=== PATIENT | male | born 1975 | race Caucasian/White ===

== ENCOUNTER 2021-01-22 04:41 | Emergency (ER) | payer SELFPAY ==
[~2021-01-22 04:41] MED LIST: NO
[2021-01-22 05:23] LABS: HEMATOCRIT 47.8 % (39.0-50.0); HEMOGLOBIN 15.6 g/dl (14.0-18.0); IMMATURE GRANULOCYTES 0.2 % (0.0-5.0); MEAN CORPUSCULAR HGB 29.4 pG CALC (26.0-32.0); MEAN CORPUSCULAR HGB CONC 32.6 g/dL CAL (32.0-36.0); NEUT# 4.37 thou/uL (1.82-7.42); RED BLOOD COUNT 5.31 mill/uL (4.70-6.10); RED CELL DISTRI WIDTH 13.2 % (11.5-15.5)
[2021-01-22 05:42] LABS: ALBUMIN 4.2 g/dL (3.2-5.0); ALKALINE PHOSPHATASE 68 u/l (38-126); AMYLASE 73 u/l (30-110); ANION GAP 11 (6-22 (CALC)); BILIRUBIN, TOTAL 0.8 mg/dL (0.0-1.4); BUN 17 mg/dL (9-20); BUN/CREATININE RATIO 14 (12-20 (CALC)); CARBON DIOXIDE 29 mmol/l (22-30); CHLORIDE 102 mmol/l (95-108); CREATININE 1.2 mg/dL (0.7-1.3); GFR > 60 ML/MIN (>=60 (CALC)); GFR FOR AFR.AMER. > 60 ML/MIN (>=60 (CALC)); LIPASE 111 u/l (23-300); POTASSIUM 4.3 mmol/l (3.5-5.1); SGOT/AST 33 u/l (17-59); SODIUM 138 mmol/l (137-146); TOTAL PROTEIN 7.5 g/dL (6.3-8.2)
[2021-01-22] MEDS ORDERED: TORADOL PO (06:29)
[2021-01-22] MEDS ORDERED: LORTAB 5/3255 MG PO (06:29)
[2021-01-22] MEDS ORDERED: TAMSULOSIN0.4 MG PO (06:29)
[2021-01-22 06:30] VITALS: BP 166/100
== END 2021-01-22 07:04 | disposition home or self-care (01) | DRG 694 ==
LOC: ED 04:41
PROVIDERS: Family Medicine
DX: N13.2 Hydronephrosis with renal and ureteral calculous obstruction (principal); F17.200 Nicotine dependence, unspecified, uncomplicated

== ENCOUNTER 2021-05-25 18:38 | Inpatient (IN) | payer OTHER ==
[~2021-05-25] VITALS: Ht 175.3 cm; Wt 177.0 kg
[~2021-05-25 18:38] MED LIST changes: +LORTAB 5/3255 MG PO; +TAMSULOSIN0.4 MG PO; +TORADOL PO
--- NOTE | 2021-05-25 18:45 | NUR ---
PT TO ROOM FOR TRIAGE VIA WHEELCHAIR
--- NOTE | 2021-05-25 19:30 | NUR ---
Reassessment of patient completed. No distress noted. REPORT FROM DAVID BOBO
[2021-05-25 20:09] LABS: HEMATOCRIT 45.8 % (39.0-50.0); IMMATURE GRANULOCYTES 0.2 % (0.0-5.0); MEAN CELL VOLUME 91.6 fL CALC (80.0-100.0); MEAN CORPUSCULAR HGB CONC 32.8 g/dL CAL (32.0-36.0); NEUT# 4.01 thou/uL (1.82-7.42); RED CELL DISTRI WIDTH 12.9 % (11.5-15.5)
[2021-05-25 20:27] LABS: ALKALINE PHOSPHATASE 64 u/l (38-126); ANION GAP 11 (6-22 (CALC)); BILIRUBIN, TOTAL 0.6 mg/dL (0.0-1.4); BUN 16 mg/dL (9-20); BUN/CREATININE RATIO 11 (12-20 (CALC)); CARBON DIOXIDE 29 mmol/l (22-30); CHLORIDE 99 mmol/l (95-108); CREATININE 1.5 mg/dL (0.7-1.3); GFR 50 ML/MIN (>=60 (CALC)); GFR FOR AFR.AMER. > 60 ML/MIN (>=60 (CALC)); LIPASE 118 u/l (23-300); POTASSIUM 3.6 mmol/l (3.5-5.1); SGOT/AST 52 u/l (17-59); SODIUM 136 mmol/l (137-146); TOTAL PROTEIN 7.5 g/dL (6.3-8.2)
--- NOTE | 2021-05-25 20:30 | NUR ---
Reassessment of patient completed. No distress noted.
[2021-05-25 20:42] LABS: D-DIMER 1.13 mg/L (0.19-0.60)
[2021-05-25 20:46] LABS: ACT PARTIAL THROMBO TIME 26.8 SECONDS (20.0-32.5); PROTHROMBIN TIME 10.6 SECONDS (9.0-12.5)
--- NOTE | 2021-05-25 21:45 | NUR ---
Reassessment of patient completed. No distress noted.
[2021-05-25 21:59] LABS: URINE BILIRUBIN - DIPSTICK NEGATIVE (NEGATIVE); URINE BLOOD DIPSTICK NEGATIVE (NEGATIVE); URINE COLOR YELLOW; URINE GLUCOSE - DIPSTICK NEGATIVE (NEGATIVE); URINE KETONE NEGATIVE (NEGATIVE); URINE LEUK ESTERASE NEGATIVE (NEGATIVE); URINE PROTEIN - DIPSTICK 30 mg/dL (NEG-TRACE); URINE SPECIFIC GRAVITY 1.025
[2021-05-25 22:01] LABS: URINE NITRITE - DIPSTICK NEGATIVE (Negative)
[2021-05-25 22:09] LABS: URINE RBC 0-2 RBC/hpf (0-5); URINE SQUAMOUS EPITHELIAL CELL FEW EPI/hpf (0-FEW)
--- NOTE | 2021-05-25 22:30 | NUR ---
Reassessment of patient completed. No distress noted.
--- NOTE | 2021-05-25 23:23 | NUR ---
Reassessment of patient completed. No distress noted.
--- NOTE | 2021-05-26 00:35 | NUR ---
Reassessment of patient completed. No distress noted.
--- NOTE | 2021-05-26 01:30 | NUR ---
Reassessment of patient completed. No distress noted.
[2021-05-26 05:55] LABS: ALBUMIN 3.8 g/dL (3.2-5.0); ALKALINE PHOSPHATASE 58 u/l (38-126); BILIRUBIN, TOTAL 0.5 mg/dL (0.0-1.4); BUN 15 mg/dL (9-20); BUN/CREATININE RATIO 14 (12-20 (CALC)); C-REACTIVE PROTEIN 5.1 mg/dL (0-0.9); CARBON DIOXIDE 24 mmol/l (22-30); CHLORIDE 100 mmol/l (95-108); CREATININE 1.1 mg/dL (0.7-1.3); GFR > 60 ML/MIN (>=60 (CALC)); GFR FOR AFR.AMER. > 60 ML/MIN (>=60 (CALC)); SGOT/AST 55 u/l (17-59); SODIUM 135 mmol/l (137-146); TOTAL PROTEIN 7.2 g/dL (6.3-8.2)
[2021-05-26 05:59] LABS: HEMATOCRIT 44.3 % (39.0-50.0); HEMOGLOBIN 14.8 g/dl (14.0-18.0); IMMATURE GRANULOCYTES 0.2 % (0.0-5.0); MEAN CELL VOLUME 91.9 fL CALC (80.0-100.0); MEAN CORPUSCULAR HGB 30.7 pG CALC (26.0-32.0); MEAN CORPUSCULAR HGB CONC 33.4 g/dL CAL (32.0-36.0); NEUT# 4.46 thou/uL (1.82-7.42); RED BLOOD COUNT 4.82 mill/uL (4.70-6.10); RED CELL DISTRI WIDTH 12.9 % (11.5-15.5)
[2021-05-26 06:10] LABS: ANION GAP 16 (6-22 (CALC)); POTASSIUM 4.8 mmol/l (3.5-5.1)
--- NOTE | 2021-05-26 16:46 | NUR ---
report rec from Sadaf BOBO
--- NOTE | 2021-05-26 17:00 | NUR ---
REPORT TO FLOOR
--- NOTE | 2021-05-26 17:20 | NUR ---
PATIENT TO FLOOR IN WHEEL CHAIR
--- NOTE | 2021-05-26 17:35 | NUR ---
PT ARRIVED VIA WC ACCOMPANIED BY ED RN. A&O X4. NO DISTRESS NOTED. PT AMBULATING TO BATHROOM WITH STEADY GAIT OBSERVED. O2 VIA ROOM AIR 87%, O2 VIA NC @4L APPLIED, O2 SUSTAINING 92-93%. CLEAR DIMINISHED BREATH SOUNDS UPON AUSCULTATION. MATERIALS HANDLER COUGH NOTED; PT REPORTS OCCASIONAL PRODUCTIVE COUGHING. MARKETING OPERATIONS SPECIALIST IN PLACE. #20G LAC HEALTHY AND PATENT. IS DEVICE TO BE GIVEN. ACTIVE BOWEL SOUNDS X4 QUADRANTS. BM REPORTED TODAY. TRACE EDEMA NOTED TO BILATERAL ANKLES. PT DENIES REC THE COVID VACCINE. REPORTS EXERTIONAL SOB AND DECREASED APPETITE. PT ORIENTED TO ROOM. ASSESSMENT COMPLETED. DISCUSSED POC. CALL LIGHT WITHIN REACH.
[2021-05-26 19:00] VITALS: BP 117/61
--- NOTE | 2021-05-26 20:35 | NUR ---
PATIENT ALERT AND ORIENTED. ABLE TO MAKE NEEDS KNOWN. SITTING IN RECLINER WITH NO COMPLAINTS VOICED. ASSESSMENT COMPLETE. NO SIGNS OF PAIN OR DISTRESS NOTED. IV SITE TO LEFT AC PATENT. BELONGINGS AND CALL LIGHT WITHIN REACH.
[2021-05-27] VITALS: BP 126/76
[2021-05-27 04:00] VITALS: BP 107/55
--- NOTE | 2021-05-27 04:15 | NUR ---
RESTING IN BED QUIETLY. NO COMPLAINTS VOICED AT THE TIME. CALL LIGHT REMAINS IN REACH.
[2021-05-27 05:45] LABS: HEMATOCRIT 45.2 % (39.0-50.0); HEMOGLOBIN 14.8 g/dl (14.0-18.0); IMMATURE GRANULOCYTES 0.2 % (0.0-5.0); MEAN CORPUSCULAR HGB 30.5 pG CALC (26.0-32.0); MEAN CORPUSCULAR HGB CONC 32.7 g/dL CAL (32.0-36.0); NEUT# 3.4 thou/uL (1.82-7.42); RED BLOOD COUNT 4.86 mill/uL (4.70-6.10); RED CELL DISTRI WIDTH 12.8 % (11.5-15.5)
--- NOTE | 2021-05-27 05:59 | NUR ---
RECEIVED PRN COUGH MEDICATION PER REQUEST. PATIENT OBSERVED SPITTING IN A CUP. PROVIDED MORE FRESH ICE WATER. NO COMPLAINTS VOICED AT THIS TIME.
[2021-05-27 06:00] LABS: ALBUMIN 3.4 g/dL (3.2-5.0); ALKALINE PHOSPHATASE 58 u/l (38-126); ANION GAP 14 (6-22 (CALC)); BILIRUBIN, TOTAL 0.4 mg/dL (0.0-1.4); BUN 16 mg/dL (9-20); BUN/CREATININE RATIO 16 (12-20 (CALC)); CARBON DIOXIDE 28 mmol/l (22-30); CHLORIDE 99 mmol/l (95-108); GFR > 60 ML/MIN (>=60 (CALC)); GFR FOR AFR.AMER. > 60 ML/MIN (>=60 (CALC)); POTASSIUM 4.7 mmol/l (3.5-5.1); SGOT/AST 53 u/l (17-59); SODIUM 135 mmol/l (137-146); TOTAL PROTEIN 6.6 g/dL (6.3-8.2)
--- NOTE | 2021-05-27 07:25 | NUR ---
PT SLEEPING WHILE ENTERING ROOM. ALERT AND ORIENTED. COVID+ ON 4L NC. VITALS AND ASSESSMENT COMPLETED. S1 AND S2 HEARD UPON ASCULTATION. PT HAS EXERTIONAL SOB. BOWELS ACTIVE IN ALL 4 QUADRANTS. SKIN WARM AND DRY. PEDAL PULSES STRONG BILATERALLY. IV PATENT AND HEALTHY. NO PAIN INDICATED. CALL LIGHT WITHIN REACH.
[2021-05-27 07:26] VITALS: BP 107/50
[2021-05-27 11:00] VITALS: BP 103/62
--- NOTE | 2021-05-27 12:02 | NUR ---
PT IN BED. NO DISTRESS NOTED. CALL LIGHT WITHIN REACH.
--- NOTE | 2021-05-27 15:05 | NUR ---
PT SITTING IN THE CHAIR. NO DISTRESS NOTED. CALL LIGHT WITHIN REACH.
[2021-05-27 16:30] VITALS: BP 127/69
[2021-05-27 19:00] VITALS: BP 116/79
--- NOTE | 2021-05-27 20:13 | NUR ---
PATIENT AWAKE ALERT SITTING UP IN CHAIR. ALERT AND ORIENTED X3. DENIES PAIN. ROCEPHIN INFUSING AT THIS TIME. HR REG. ON TELEMETRY. O2 3.5 L N/C IN PLACE. NO ACUTE DISTRESS. EXPRESSED DESIRE TO TAKE SHOWER. VAD PATENT WITH DRESSING CDI. ASSESSMENT COMPLETED AND CHARTED. CALL LIGHT WITHIN REACH.
--- NOTE | 2021-05-27 23:00 | NUR ---
PATIENT UP TO SHOWER WITHOUT DIFFICULTY.
--- NOTE | 2021-05-27 23:30 | NUR ---
AT 2130 PATIENT HAS AN 11 BEAT RUN OF VTACH. PATIENT ASYMPTOMATIC. SITTING UP IN CHAIR. ZITHROMAX INFUSING. CALL LIGHT WITHIN REACH.
[2021-05-28] VITALS: BP 105/65
--- NOTE | 2021-05-28 | NUR ---
PRN NICHOLESIN AC GIVEN PER PATIENT REQUEST.
[2021-05-28 04:00] VITALS: BP 107/66
--- NOTE | 2021-05-28 04:08 | NUR ---
NO CHANGES OBSERVED.
[2021-05-28 05:36] LABS: HEMATOCRIT 43.6 % (39.0-50.0); HEMOGLOBIN 14.2 g/dl (14.0-18.0); MEAN CELL VOLUME 92.4 fL CALC (80.0-100.0); MEAN CORPUSCULAR HGB 30.1 pG CALC (26.0-32.0); MEAN CORPUSCULAR HGB CONC 32.6 g/dL CAL (32.0-36.0); NEUT# 2.45 thou/uL (1.82-7.42); RED BLOOD COUNT 4.72 mill/uL (4.70-6.10); RED CELL DISTRI WIDTH 12.9 % (11.5-15.5)
[2021-05-28 05:56] LABS: ALBUMIN 3.4 g/dL (3.2-5.0); ALKALINE PHOSPHATASE 58 u/l (38-126); ANION GAP 12 (6-22 (CALC)); BILIRUBIN, TOTAL 0.4 mg/dL (0.0-1.4); BUN 18 mg/dL (9-20); BUN/CREATININE RATIO 20 (12-20 (CALC)); C-REACTIVE PROTEIN 4.7 mg/dL (0-0.9); CARBON DIOXIDE 27 mmol/l (22-30); CHLORIDE 99 mmol/l (95-108); CREATININE 0.9 mg/dL (0.7-1.3); GFR > 60 ML/MIN (>=60 (CALC)); GFR FOR AFR.AMER. > 60 ML/MIN (>=60 (CALC)); POTASSIUM 4.6 mmol/l (3.5-5.1); SGOT/AST 66 u/l (17-59); SODIUM 134 mmol/l (137-146); TOTAL PROTEIN 6.4 g/dL (6.3-8.2)
[2021-05-28 07:45] VITALS: BP 131/72
--- NOTE | 2021-05-28 07:45 | NUR ---
PT IN BED WHEN ENTERED ROOM. PT IS ALERT AND ORIENTED. COVID+ ON 3.5L OF 02.NC. PT IS STATING BETWEEN 91-92%. VITALS AND ASSESSMENT COMPLETED. PRODUCTIVE COUGH WITH CLEAR FLUID GETTING EXPELLED. S1 AND S2 HEARD UPON ASCULTATION. BOWELS ACTIVE IN ALL 4 QUADS. SKIN WARM AND DRY. PEDAL PULSES BILATERALLY STRONG. IV PATENT AND HEALTHY. NO PAIN INDICATED. CALL LIGHT WITHIN REACH.
--- NOTE | 2021-05-28 10:42 | NUR ---
PT IN BED. NO WANTS AT THIS TIME. NO PAIN INDICATED. CALL LIGHT WITHIN REACH.
--- NOTE | 2021-05-28 10:59 | NUR ---
DR. MERIDA AND Zulma MARS AT BEDSIDE DISCUSSING POC.
[2021-05-28 11:00] VITALS: BP 117/65
--- NOTE | 2021-05-28 12:00 | NUR ---
PT IN BED. NO DISTRESS NOTED. CALL LIGHT WITHIN REACH.
--- NOTE | 2021-05-28 12:56 | NUR ---
PT UP IN CHAIR. NO DISTRESS NOTED. CALL LIGHT WITHIN REACH.
[2021-05-28 19:00] VITALS: BP 111/48
--- NOTE | 2021-05-28 19:28 | NUR ---
PHYSICAL ASSESMENT COMPLETE. PT CURRENTLY DENIES PAIN OR DISCOMFORT. SCHEDULED MEDICATIONS AND PRN MEDICATION ADMINISTERED, SEE E-MAR. PT DENIES ANY NEEDS AT THIS TIME. PLAN OF CARE REVIEWED, PT DENIES QUESTIONS, VERBALIZES UNDERSTANDING. ITEMS WITHIN REACH, BED LOCKED IN LOW POSITION W/ BEDRAILS UP X2. CALL HARRIS WITHIN REACH, AGREES TO CALL PRN.
--- NOTE | 2021-05-29 | NUR ---
PT IN LAZY BOY CHAIR, APPEARS TO BE SLEEPING, APPEARS COMFORTABLE AND IN NO DISTRESS. RESPIRATIONS REGULAR AND UNLABORED. ITEMS REMAIN WITHIN REACH, CALL HARRIS REMAINS WITHIN REACH. BED REMAINS LOCKED AND IN LOW POSITION WITH BEDRAILS UP X2. WILL CONTINUE TO MONITOR.
[2021-05-29 04:00] VITALS: BP 117/90
--- NOTE | 2021-05-29 04:50 | NUR ---
PT RESTING IN BED, NO SIGNS OF DISTRESS NOTED, RESP EVEN AND UNLABORED. PT VOICES NO NEEDS OR COMPLAINTS AT THIS TIME. CALL LIGHT IN REACH, CONTINUE TO MONITOR.
[2021-05-29 05:35] LABS: HEMATOCRIT 43.4 % (39.0-50.0); HEMOGLOBIN 14.2 g/dl (14.0-18.0); MEAN CELL VOLUME 92.3 fL CALC (80.0-100.0); MEAN CORPUSCULAR HGB 30.2 pG CALC (26.0-32.0); MEAN CORPUSCULAR HGB CONC 32.7 g/dL CAL (32.0-36.0); NEUT# 2.79 thou/uL (1.82-7.42); RED BLOOD COUNT 4.7 mill/uL (4.70-6.10); RED CELL DISTRI WIDTH 12.8 % (11.5-15.5)
[2021-05-29 05:47] LABS: ALBUMIN 3.4 g/dL (3.2-5.0); ALKALINE PHOSPHATASE 56 u/l (38-126); ANION GAP 11 (6-22 (CALC)); BILIRUBIN, TOTAL 0.5 mg/dL (0.0-1.4); BUN 17 mg/dL (9-20); BUN/CREATININE RATIO 20 (12-20 (CALC)); CARBON DIOXIDE 32 mmol/l (22-30); CHLORIDE 97 mmol/l (95-108); CREATININE 0.8 mg/dL (0.7-1.3); GFR > 60 ML/MIN (>=60 (CALC)); GFR FOR AFR.AMER. > 60 ML/MIN (>=60 (CALC)); POTASSIUM 4.8 mmol/l (3.5-5.1); SGOT/AST 80 u/l (17-59); SODIUM 136 mmol/l (137-146); TOTAL PROTEIN 6.5 g/dL (6.3-8.2)
--- NOTE | 2021-05-29 07:00 | NUR ---
RECIEVED REPORT FROM JIHAN SWAIN
[2021-05-29 09:43] VITALS: BP 137/43
--- NOTE | 2021-05-29 09:43 | NUR ---
PT RESTING IN CHAIR UPON ENTERING ROOM. PT IS A/O X3. ASSESSMENT AND VITALS COMPLETED. BP 137/43, HR 75, O2 90% ON 5L NC. RESPIRATIONS ARE EVEN AND UNLABORED WITH NO DISTRESS NOTED. LUNG SOUNDS ARE DIMINISHED. BOWEL SOUNDS ARE ACTIVE.HEART RHYTHM NORMAL. #20G LAC FLUSHED, SITE APPEARS HEALTHY AND PATENT. SKIN INTACT. PEDAL PULSES WEAK. PT DENIES OF ANY PAINS OR DISCOMFORTS AT THIS TIME. ALL SAFETY PRECAUTIONS ARE IN PLACE WITH CALL LIGHT IN REACH. ISOLATION PRECAUTIONS. WILL CONTINUE TO MONITOR.
--- NOTE | 2021-05-29 10:45 | NUR ---
DR MERIDA AND ALECIA,ANJASON AT BEDSIDE
[2021-05-29 11:55] VITALS: BP 111/63
--- NOTE | 2021-05-29 12:22 | NUR ---
PT RESTING IN CHAIR. REPSIRATIONS ARE EVEN AND UNLABORED WITH NO DISTRESS NOTED. O2 91-92% ON 5L NC. PT DENIES OF ANY PAINS OR DISCOMFORTS AT THIS TIME. ALL SAFETY PRECAUTIONS ARE IN PLACE WITH CALL LIGHT IN REACH.ISOLATION PRECAUTIONS. WILL CONTINUE TO MONITOR.
--- NOTE | 2021-05-29 15:04 | NUR ---
PT SITTING UP IN CHAIR. REPSIRATIONS EVEN AND UNLABORED ON 5L NC. IV ANTIBIOTICS INFUSING WITH EASY, SITE REMAINS HEALTHY AND PATENT. PT DENIES OF ANY ADDITIONAL PAINS OR DISCOMFORTS AT THIS TIME.ALL SAFETY PRECAUTIONS ARE IN PLACE WITH CALL LIGHT IN REACH WILL CONTINUE TO MONITOR
[2021-05-29 16:40] VITALS: BP 107/57
[2021-05-29 19:59] VITALS: BP 126/75
--- NOTE | 2021-05-29 20:07 | NUR ---
PT MEDICATED ORDERS PROVIDE AND ASSESSMENT COMPLETED AT THIS TIME. PT IS SITTING UPRIGHT IN RECLINER. OXYGEN NC @5L, 91-92% 02 SATS AT THIS TIME. PT DEMONSTRATED I.S. USE, LOW BREATH VOLUME MEASURED AT THIS TIME BELOW 1000. MEDICATION SCHEDULE AND DOSING DISCUSSED WITH PT. HE DENIES ANY OTHER NEEDS AT THIS TIME. CALL LIGHT W/IN REACH AND PT ENCOURAGED TO CALL.
--- NOTE | 2021-05-29 22:47 | NUR ---
PT MEDICATED ORDERS PROVIDE. OXYGEN SAT 91% ON 5LNC, OXYGEN TURNED TO 6LNC AND RESP NOTIFIED OF INCREASE AND POSSIBLE NEED FOR HIGH FLOW NC.
--- NOTE | 2021-05-30 01:45 | NUR ---
RESP TECH IN TO SEE PT, HE REPORTS HAVING PLACED THE PT ON HIGH FLOW NC, BUT STATES THAT HE DID NOT CHECK PT'S O2 SAT LEVELS. WATER PROJECT MANAGER ENTERED ROOM TO CHECK PT AND OBTAINED 92% ON 6L NC HIGH FLOW AT THIS TIME.
[2021-05-30 04:00] VITALS: BP 132/69
--- NOTE | 2021-05-30 04:39 | NUR ---
PT IN LOW FOWLERS IN BED WATCHING TV. OXYGEN SAT LEVEL 90% ON HIGH FLOW 6%NC HIGH FLOW.
[2021-05-30 05:27] LABS: HEMATOCRIT 42.8 % (39.0-50.0); MEAN CELL VOLUME 92.8 fL CALC (80.0-100.0); MEAN CORPUSCULAR HGB 30.4 pG CALC (26.0-32.0); MEAN CORPUSCULAR HGB CONC 32.7 g/dL CAL (32.0-36.0); NEUT# 2.15 thou/uL (1.82-7.42); RED BLOOD COUNT 4.61 mill/uL (4.70-6.10); RED CELL DISTRI WIDTH 12.9 % (11.5-15.5)
[2021-05-30 06:11] LABS: ALBUMIN 3.1 g/dL (3.2-5.0); ALKALINE PHOSPHATASE 57 u/l (38-126); ANION GAP 10 (6-22 (CALC)); BILIRUBIN, TOTAL 0.4 mg/dL (0.0-1.4); BUN 15 mg/dL (9-20); BUN/CREATININE RATIO 19 (12-20 (CALC)); C-REACTIVE PROTEIN 4.4 mg/dL (0-0.9); CARBON DIOXIDE 34 mmol/l (22-30); CHLORIDE 99 mmol/l (95-108); CREATININE 0.8 mg/dL (0.7-1.3); GFR > 60 ML/MIN (>=60 (CALC)); GFR FOR AFR.AMER. > 60 ML/MIN (>=60 (CALC)); POTASSIUM 4.7 mmol/l (3.5-5.1); SGOT/AST 73 u/l (17-59); SODIUM 138 mmol/l (137-146); TOTAL PROTEIN 6.2 g/dL (6.3-8.2)
--- NOTE | 2021-05-30 06:51 | NUR ---
REPORT REC FROM Lemuel SHEN RN
[2021-05-30 08:05] VITALS: BP 126/80
--- NOTE | 2021-05-30 08:05 | NUR ---
PT SITTING IN CHAIR. A&O X4. NO DISTRESS NOTED. O2 VIA NC @6L HF. PT SUSTAINING 90-92%. CLEAR/DIMINISHED BREATH SOUNDS UPON AUSCULTATION. ACTIVE BOWEL SOUNDS X4 QUADRANTS. TRACE EDEMA NOTED TO BILATERAL ANKLES. #22G LAC HEALTHY AND PATENT. NO OTHER NEEDS AT THIS TIME. ASSESSMENT COMPLETED. DISCUSSED POC. ISOLATION PRECAUTIONS IN PLACE; PT EDUCATED ON THE NEED FOR THESE PRECAUTIONS. CALL LIGHT WITHIN REACH.
--- NOTE | 2021-05-30 10:40 | NUR ---
DR HARGROVE AND Pearl DOUGLAS APRN AT BEDSIDE DISCUSSING POC
[2021-05-30 12:00] VITALS: BP 111/69
--- NOTE | 2021-05-30 12:45 | NUR ---
PT SITTING IN BED. O2 CURRENTLY 93%, O2 TITRATED DOWN TO 5L HF NC. O2 TO BE MONITORED ROUTINELY FOR TITRATTION NEEDS. NO OTHER NEEDS AT THIS TIME, PT UPDATED ON POC AND HOLD ON D/C FOR TODAY. PT AGREEABLE. CALL LIGHT WITHIN REACH.
[2021-05-30 15:00] VITALS: BP 124/64
--- NOTE | 2021-05-30 15:27 | NUR ---
PT SITTING IN CHAIR. NO OTHER NEEDS AT THIS TIME. O2 REMAINS AT 92%. NO OTHER NEEDS AT THIS TIME. CALL LIGHT WITHIN REACH.
--- NOTE | 2021-05-30 17:40 | NUR ---
PT SITTING IN CHAIR EATING DINNER. NO OTHER NEEDS AT THIS TIME. CALL LIGHT WITHIN REACH.
[2021-05-30 20:10] VITALS: BP 125/58
--- NOTE | 2021-05-30 20:10 | NUR ---
ASSESSMENT COMPLETED AND V/S OBTAINED. PT MEDICATED ORDERS PROVIDE. PT IS SITTING UPRIGHT IN RECLINER WITH TV ON. DENIES ANY DISTRESSES AT THIS TIME. 91% ON 5LNC HIGH FLOW.
--- NOTE | 2021-05-30 20:50 | NUR ---
ANTIBIOTIC THERAPY ADMINSTERED AT THIS TIME. FRESH ICE WATER PROVIDED AND SNACK. DENIED ANY OTHER NEEDS AT THIS TIME. CALL LIGHT AT SIDE.
[2021-05-31] VITALS: BP 127/72
--- NOTE | 2021-05-31 04:10 | NUR ---
PT AWAKE SITTING IN THE RECLINER. NO S/O DISTRESS NOTED AT THIS TIME. V/S ASSESSED. CALL LIGHT AT SIDE, PT DENIES ANY OTHER NEEDS.
[2021-05-31 04:12] VITALS: BP 129/75
--- NOTE | 2021-05-31 08:10 | NUR ---
PT UP TO CHAIR. PT DENIES PAIN OR SOB AT THIS TIME. PT A&0 X4. VS AND ASSESSMENT COMPLETE. HR IS WITHIN NORMAL RANGE FOR PT. LUNGS DIMINISHED. PT ON 5L OXYGEN WITH SPO2 OF 91-92% WILL ATTEMPT TO WEAN PT'S OXYGEN NEEDS. ABDOMEN SOFT AND NONTENTER. BOWEL SOUNDS ACTIVE X 4QUAD. PERIPHERAL PULSES PALPABLE. IV FLUSHED AND PATENT. WILL MONITOR PT CLOSELY
--- NOTE | 2021-05-31 12:00 | NUR ---
PT RESTING COMFORTABLY IN BED IN SUPINE POSITION AND HEAD OF BED 30 DEGREE. PT DENIES ANY PAIN OR DISCOMFORT. WILL CONTINUE TO MONITOR PATIENT
[2021-05-31 15:05] VITALS: BP 141/75
[2021-05-31 19:18] VITALS: BP 122/75
--- NOTE | 2021-05-31 20:00 | NUR ---
PATIENT RESTING IN BED AT THIS TIME WITH O2 VIA NASAL CANNULA IN PLACE AT 5LPM O2 SAT AT THIS TIME 92%. ALERT AND ORIENTEDX3. PATIENT WITH PRODUCTIVE COUGH WITH CREAM COLORED SPUTUM. WILL MEDICATED WITH ROBITUSSIN AC WITH MEDS. LUNGS ARE CLEAR BUT DIMINISHED IN THE BASES. ABD IS LARGE WITH BS ACTIVE. DENIES ANY DIFFICULTY WITH URINATION. PATIENT WITH SLIGHT BLE SWELLING. PATIENT ON ISOLATION FOR COVID. IV SITE TO LAC IS INTACT. ENCOURAGED USE OF IS Q1H WHILE AWAKE AND PRONING WHEN POSSIBLE. CALL LIGHT IN REACH. WILL CONT TO MONITOR.
--- NOTE | 2021-05-31 22:52 | NUR ---
PATIENT SITTING IN THE SIDE OF THE BED WITH O2 VIA NASAL CANNULA IN PLACE AT 5LPM. O2 SAT IS 94%. DECREASED TO 4.5 LPM HIGH FLOW. MEDICATED WITH XANAX 0.25MG PO FOR SLEEP AND SNXIETY AND WITH ROBITUSSIN AC FOR COUGH. CALL LIGHT IN REACH. WILL CONT TO MONITOR.
[2021-06-01] VITALS: BP 113/78
--- NOTE | 2021-06-01 01:48 | NUR ---
PATIENT SITTING UP IN THE RECLINER AT THIS TIME WITH EYES CLOSED AND RESPS EVEN AND UNLABORED. O2 VIA NASAL CANNULA IS 97% AT THIS TIME. TITRATED DOWN TO 4LPM AND WILL CONT TO MONITOR. CALL LIGHT IN REACH. WILL CONT TO MONITOR.
--- NOTE | 2021-06-01 04:05 | NUR ---
PATIENT IS AWAKE AND SITTING UP IN THE RECLINER WITH O2 VIA NASAL CANNULA IN PLACE AT 4LPM-O2 SAT IS 89%. O2 INCREASED TO 5 AND THEN 6LPM TO ACHEIVE O2 SAT OF 92%, WILL CONT TO MONITOR. CALL LIGHT IN REACH.
[2021-06-01 05:15] VITALS: BP 113/71
[2021-06-01 05:22] LABS: HEMATOCRIT 42.3 % (39.0-50.0); HEMOGLOBIN 13.7 g/dl (14.0-18.0); IMMATURE GRANULOCYTES 1.1 % (0.0-5.0); MEAN CORPUSCULAR HGB 30.1 pG CALC (26.0-32.0); MEAN CORPUSCULAR HGB CONC 32.4 g/dL CAL (32.0-36.0); NEUT# 2.8 thou/uL (1.82-7.42); RED BLOOD COUNT 4.55 mill/uL (4.70-6.10); RED CELL DISTRI WIDTH 12.8 % (11.5-15.5)
[2021-06-01 05:53] LABS: ALBUMIN 3.1 g/dL (3.2-5.0); ALKALINE PHOSPHATASE 57 u/l (38-126); ANION GAP 11 (6-22 (CALC)); BILIRUBIN, TOTAL 0.5 mg/dL (0.0-1.4); BUN 15 mg/dL (9-20); BUN/CREATININE RATIO 20 (12-20 (CALC)); C-REACTIVE PROTEIN 1.8 mg/dL (0-0.9); CARBON DIOXIDE 31 mmol/l (22-30); CHLORIDE 101 mmol/l (95-108); CREATININE 0.8 mg/dL (0.7-1.3); GFR > 60 ML/MIN (>=60 (CALC)); GFR FOR AFR.AMER. > 60 ML/MIN (>=60 (CALC)); SGOT/AST 60 u/l (17-59); SODIUM 139 mmol/l (137-146); TOTAL PROTEIN 6.2 g/dL (6.3-8.2)
--- NOTE | 2021-06-01 08:20 | NUR ---
PT SITTING UP IN BEDSIDE CHAIR. A&O X4 PT DENIES ANY PAIN OR DISCOMFORT AT THIS TIME. PT STATES HE WANTS TO HAVE A SHOWER THIS MORNING. VS AND ASSESSMENT COMPLETE. PERRLA. LUNGS DIMINISHED. ABDOMEN ROUND AND NONTENDER. SKIN INTACT. PERIPHERAL PULSES STRONG. IV PATENT AND FLUSHED SAFETY MEASURES IN PLACE WILL MONITOR PT CLOSELY
--- NOTE | 2021-06-01 12:00 | NUR ---
PT UP TO CHAIR, PT DENIES PAIN OR DISCOMFORT. SAFETY PRECAUTIONS ARE IN PLACE, CALL LIGHT WITHIN PATIENTS REACH. WILL CONTINUE TO MONITOR PATIENT CLOSELY
[2021-06-01 15:18] VITALS: BP 118/69
--- NOTE | 2021-06-01 16:00 | NUR ---
PT UP TO CHAIR. PT DENIES ANY PAIN OR DISCOMFORT. SAFETY PRECAUTIONS IN PLACE, CALL LIGHT WITHIN PATIENT'S REACH. WILL CONTINUE TO MONITOR PT CLOSELY
[2021-06-01 19:00] VITALS: BP 122/74
--- NOTE | 2021-06-01 19:45 | NUR ---
PATIENT STTING UP IN RECLINER AT THIS TIME-AWAKE ALERT AND ORIENTEDX3. O2 VIA NASAL CANNULA IN PLACE AT 4LPM HIGH FLOW. O2 SAT IS 92% AT THIS TIME. PATIENT WITH NO COMPLAINTS AT THIS TIME-WANTS TO GO HOME. STATES THAT HE ALREADY HAS O2 SET UP AT HOME. PATIENT ON ISOLATION FOR COVID. TELE MONITOR APPLIED.-READING SR-60'S. IV SITE TO LAC INTACT AND IS HEALTHY AT THIS TIME. ENCOURAGED PATIENT TO USE IS Q1H AND PRONE IF POSSIBLE. VERBALIZES UNDERSTANDING. CONT TO HAVE LOOSE COUGH WITH BEIGE/JOSEPH SECREATIONS. LUNGS ARE DIMINISHED THOUGHOUT. ABD IS LARGE WITH BS+. STATES THAT HE DID HAVE BM TODAY. DENIES ANY PROBLEMS WITH URINATION. CONT TO HAVE BLE SWELLING-ENCOURAGED ELEVATION WHEN SITTING UP. PULSES ARE PALPABLE. SAFETY PRECAUTIONS REINFORCED. CALL LIGHT IN REACH. WILL CONT TO MONITOR.
--- NOTE | 2021-06-01 22:52 | NUR ---
PATIENT REMAINS UP IN THE RECLINER AT THIS TIME AWAKE ALERT AND ORIENTED WITH O2 VIA NASAL CANNULA IN LACE AT 4LPM HI FLOW-O2 SAT AT THIS TIME IS 96% AND HR-72. AZITHROMYCIN IS FINISHING UP VIA LAC SITE. TELE MONITOR IN PLACE. MEDICATED WITH XANAX 0.25MG PO FOR ANXIETY AND SLEEP. REMAINS ON ISOLATION FOR COVID. SAFETY PRECAUTIONS REINFORCED. CALL LIGHT IN REACH. WILL CONT TO MONITOR.
[2021-06-02 03:52] VITALS: BP 113/71
--- NOTE | 2021-06-02 04:45 | NUR ---
PATIENT STILL UP IN THE RECLINER-AWAKE WITH NO COMPLANITS AT THIS TIME. O2 VIA NASAL CANNULA IN PLACE AT 4LPM. O2 SAT IS 92% THIS MORNING. TELE MONITOR IN PLACE-LAST READING WAS SB-53. CALL LIGHT IN REACH. WILL CONT TO MONITOR.
[2021-06-02 05:57] LABS: HEMATOCRIT 44.2 % (39.0-50.0); HEMOGLOBIN 14.5 g/dl (14.0-18.0); IMMATURE GRANULOCYTES 1.2 % (0.0-5.0); MEAN CELL VOLUME 93.1 fL CALC (80.0-100.0); MEAN CORPUSCULAR HGB 30.5 pG CALC (26.0-32.0); MEAN CORPUSCULAR HGB CONC 32.8 g/dL CAL (32.0-36.0); NEUT# 3.68 thou/uL (1.82-7.42); RED BLOOD COUNT 4.75 mill/uL (4.70-6.10); RED CELL DISTRI WIDTH 12.6 % (11.5-15.5)
[2021-06-02 06:17] LABS: ALBUMIN 3.2 g/dL (3.2-5.0); ALKALINE PHOSPHATASE 54 u/l (38-126); ANION GAP 11 (6-22 (CALC)); BILIRUBIN, TOTAL 0.5 mg/dL (0.0-1.4); BUN 16 mg/dL (9-20); BUN/CREATININE RATIO 20 (12-20 (CALC)); CARBON DIOXIDE 32 mmol/l (22-30); CHLORIDE 101 mmol/l (95-108); CREATININE 0.8 mg/dL (0.7-1.3); GFR > 60 ML/MIN (>=60 (CALC)); GFR FOR AFR.AMER. > 60 ML/MIN (>=60 (CALC)); POTASSIUM 4.3 mmol/l (3.5-5.1); SGOT/AST 54 u/l (17-59); SODIUM 140 mmol/l (137-146); TOTAL PROTEIN 6.3 g/dL (6.3-8.2)
--- NOTE | 2021-06-02 07:00 | NUR ---
RECIEVED RPORT FROM JIHAN DOUGLASS
[2021-06-02 08:45] VITALS: BP 123/70
--- NOTE | 2021-06-02 08:45 | NUR ---
PT SITTING UP IN CHAIR. ASSESSMENT AND VITALS COMPLETED. REPSIRATIONS ARE EVEN AND UNLABORED WITH NO DISTRESS NOTED, 94% ON 3L NC.LUNG SOUNDS ARE DIMINISHED NONPRODUCTIVE COUGH NOTED. HEART RHYTHM NORMAL WITH TELE IN PLACE. BOWEL SOUNDS ARE ACTIVE. #22G LAC FLUSHED, SITE APPEARS HEALTHY AND PATENT. SKIN INTACT. PT DENIES OF ANY PAINS OR DISCOMFORTS AT THIS TIME. ALL SAFTEY PRECAUTIONS ARE IN PLACE WITH CALL LIGHT IN REACH. AIR/CONTACT PRECAUTIONS ARE IN PLACE. WILL CONTINUE TO MONITOR.
--- NOTE | 2021-06-02 09:00 | NUR ---
O2 REMOVED FOR WALK TEST. 92% WHILE RESTING ON ROOM AIR. O2 DESAT TO 85% WHILE AMBULATING. O2 REAPPLIED, 93% RESTING ON 3L NC. RESPIRATIONS REMAINS EVEN AND UNLABORED. PT DENIES OF ANY SOB. WILL CONTINUE TO MONITOR.
[2021-06-02 10:30] VITALS: BP 129/71
--- NOTE | 2021-06-02 10:50 | NUR ---
DR MERIDA AND ALECIA,ANJASON AT BEDSIDE
[2021-06-02] MEDS ORDERED: DEXAMETHASON6 MG PO (12:11)
[2021-06-02] MEDS ORDERED: ZITHROMAX250 MG PO (12:11)
[2021-06-02] MEDS ORDERED: ASPIRIN REGULA325 M1 PO (12:12)
--- NOTE | 2021-06-02 12:29 | NUR ---
PT SITTING UP IN CHAIR WATCHING TV. REPSIRATIONS ARE EVEN AND UNLABORED ON 2.5L NC, 92%. TELE MONITORING IN PLACE. IV SITE REMAINS IN PLACE. PT DENIES OF ANY PAINS OR DISCOMFORTS. ALL SAFETY PRECAUTIONS ARE IN NPLACE WITH CALL LIGHT IN REACH. WILL CONTINUE TO MONITOR.
--- NOTE | 2021-06-02 14:49 | NUR ---
PT EDUCATED ON DC INCTRUCTIONS AND NEW MEDICATIONS SENT TO [facility]. PT VERBLAIZED UNDERSTANDING.PT EDUCATED ON HOME O2. IV REMOVED WITH CATH STILL INTACT. TELE MONITORING REMOVED, ER NOTIFIED. TRANSPORTATION TO ARRIVE SOON. WILL CONTINUE TO MONITOR
--- NOTE | 2021-06-02 15:15 | NUR ---
Discharge instructions given. Patient verbalizes understanding of same. Discharged in stable condition via Wheelchair to Home with *Other. All belongings sent with pt. PT DC HOME IN STABLE CONDITION ON 2.5L NC. PT DC WITH ALL DC INSTRUCTIONS, HOME O2 AND PERSONAL BELONGINGS.
--- NOTE | 2021-06-05 10:42 | NUR ---
Pneumonia post discharge follow up call completed today, 06/05/21. Pt. states he is doing well. No fever, chills, or SOB since discharge. Pt. completed prescribed medication and had no issues. A follow up appt has not been scheduled but pt. states he will call soon to schedule. No questions or needs voiced at this time.
== END 2021-06-02 15:15 | disposition home or self-care (01) | DRG 177 ==
LOC: ED 18:38 → ED-I 20:39 → ED 20:58 → ED-I 20:59 → MS2 05-26 16:00
PROVIDERS: Nurse Practitioner; Nurse Practitioner Family; ADMIT Hospitalist; ATTEND Hospitalist
PROC: XW033E5 Introduction of Remdesivir Anti-infective into Peripheral Vein, Percutaneous Approach, New Technology Group 5 (ICD-10-PCS; principal; 2021-05-26)
DX: U07.1 COVID-19 (principal); J12.82 Pneumonia due to coronavirus disease 2019; J96.01 Acute respiratory failure with hypoxia; Z68.43 Body mass index [BMI] 50.0-59.9, adult; N17.9 Acute kidney failure, unspecified; D75.82 Heparin induced thrombocytopenia (HIT); T45.515A Adverse effect of anticoagulants, initial encounter; E66.01 Morbid (severe) obesity due to excess calories; G47.30 Sleep apnea, unspecified; F17.200 Nicotine dependence, unspecified, uncomplicated; Z87.442 Personal history of urinary calculi; Z91.11 Patient's noncompliance with dietary regimen
CPT/HCPCS: Q9967

== ENCOUNTER 2022-02-20 09:43 | Emergency (ER) | payer SELFPAY ==
[~2022-02-20] VITALS: Ht 175.3 cm; Wt 159.0 kg
[~2022-02-20 09:43] MED LIST changes: +ASPIRIN REGULA325 M1 PO; +DEXAMETHASON6 MG PO; +ZITHROMAX250 MG PO
[2022-02-20] MEDS ORDERED: CEPHALEXIN500 M1 PO (10:16)
[2022-02-20 10:32] VITALS: BP 141/98
== END 2022-02-20 10:55 | disposition home or self-care (01) | DRG 125 ==
LOC: ED 09:43
PROC: 0HQ1XZZ Repair Face Skin, External Approach (ICD-10-PCS; principal; 2022-02-20)
DX: S01.112A Laceration without foreign body of left eyelid and periocular area, initial encounter (principal); E66.9 Obesity, unspecified; F17.210 Nicotine dependence, cigarettes, uncomplicated; W22.8XXA Striking against or struck by other objects, initial encounter; Y93.89 Activity, other specified; Y92.009 Unspecified place in unspecified non-institutional (private) residence as the place of occurrence of the external cause

== ENCOUNTER 2023-05-02 03:07 | Emergency (ER) | payer SELFPAY ==
[~2023-05-02] VITALS: Ht 172.7 cm; Wt 181.4 kg
[~2023-05-02 03:07] MED LIST changes: +CEPHALEXIN500 M1 PO
[2023-05-02] MEDS ORDERED: LISINOP/HCTZ1 TA2 PO ×4 (03:35→18:32)
[2023-05-02] MEDS ORDERED: TRIAMCINOLON0.0252 EX (03:35)
[2023-05-02 03:50] VITALS: BP 152/108
== END 2023-05-02 03:55 | disposition home or self-care (01) | DRG 300 ==
LOC: ED 03:07
DX: I87.2 Venous insufficiency (chronic) (peripheral) (principal); Z68.43 Body mass index [BMI] 50.0-59.9, adult; I10 Essential (primary) hypertension; E66.01 Morbid (severe) obesity due to excess calories